=== PATIENT | female | born 1945 | race Caucasian/White ===

== ENCOUNTER → 2019-05-26 12:00 | Outpatient (CLI) | payer OTHER ==
[~2019-05-26 12:00] MED LIST: ALTACE1.25 M1 PO; LISINOPRIL10 MG PO; NEURONTIN800 MG PO; TOPROL XL25 MG PO; ULTRAM50 MG PO; URETRON D/S TAB1 TAB PO
== END | disposition home or self-care (01) ==
LOC: LAB 12:00
DX: D68.8 Other specified coagulation defects (principal); Z01.818 Encounter for other preprocedural examination; M96.1 Postlaminectomy syndrome, not elsewhere classified; M43.16 Spondylolisthesis, lumbar region; Z01.810 Encounter for preprocedural cardiovascular examination

== ENCOUNTER 2019-05-30 06:15 | Day surgery (SDC) | payer OTHER | END 2019-05-30 12:00 | disposition home or self-care (01) | LOC: CIR.AMB 06:15 | DX: M43.16 Spondylolisthesis, lumbar region (principal); M96.1 Postlaminectomy syndrome, not elsewhere classified ==